=== PATIENT | male | born 1980 | race Caucasian/White ===

== ENCOUNTER 2024-08-14 13:12 | Emergency (ER) | payer OTHER, SELFPAY ==
[2024-08-14 13:22] VITALS: BP 159/96; PULSE 67; RESP 16; TEMP 36.4; O2SAT 97
--- NOTE | 2024-08-14 14:36 | ED.WOUNDLAC ---
HPI - Wound/Laceration General Chief Complaint: Wound/Laceration Stated Complaint: lac to the L thumb Time Seen by Provider: 08/14/24 14:20 Source: patient Mode of arrival: ambulatory Limitations: no limitations History of Present Illness HPI narrative: This is a 44 year old male that presents to the ER for laceration to the left 1st finger. Reports he accidentally cut himself with a blade. Reports bleeding and pain to the area. He is not up to date on tetanus. Denies decreased ROM or numbness. Related Data Allergies Allergy/AdvReac Type Severity Reaction Status Date / Time No Known Allergies Allergy Verified 08/14/24 14:47 Review of Systems Review of Systems: CONSTITUTIONAL: Denies fever SKIN: Reports laceration NEUROLOGIC: Denies numbness All systems reviewed & are unremarkable except as noted in HPI and below Exam Narrative: GENERAL: Well-appearing, well-nourished, and in no acute distress. HEAD: Normocephalic, atraumatic. EYES: EOMI. EXTREMITIES: Normal range of motion. No edema. 1.5 cm linear laceration into subcutaneous tissue to the distal phalanx left 1st finger SKIN: Warm, dry, no rash. NEURO: No focal deficits. Alert and oriented x3. PSYCH: Normal mood and affect Course Course Emergency Course: patient educated on further wound care Vital Signs Vital signs: Vital Signs Temperature 97.6 F 08/14/24 13:22 Pulse Rate 67 08/14/24 13:22 Respiratory Rate 16 08/14/24 13:22 Blood Pressure 159/96 H 08/14/24 13:22 Pulse Oximetry 97 08/14/24 13:22 Temperature 97.6 F 08/14/24 13:22 Pulse Rate 67 08/14/24 13:22 Respiratory Rate 16 08/14/24 13:22 Blood Pressure 159/96 H 08/14/24 13:22 Pulse Oximetry 97 08/14/24 13:22 Procedures Laceration Laceration 1: Date: 08/14/24 Time: 15:02 Site: hand Side (If applicable): left Size (cm): 1.5 Description: linear Depth: simple, single layer Local Anesthetic: lidocaine 1% Amount of anesthesia used (mL): 2 Pre-repair: wound explored and irrigated ====== Skin Level ====== Skin layer closed with: nylon Size (cm): 4-0 Number of sutures: 2 Technique: simple, interrupted ====== Subcutaneous Layer ====== ====== Muscle Layer ====== ====== Tendon Layer ====== MDM - Wound/Laceration MDM Narrative Medical decision making narrative: Patient presents to the emergency department after a laceration to the left 1st finger sustained just prior to arrival. Patient updated on tetanus vaccination. His wound was irrigated and closed with sutures. Educated on further wound care. He is to follow up with primary provider. He was given warnings to return to the ER Differential Diagnosis Differential diagnosis: Likely laceration, abrasion and avulsion of skin Critical Care Time Critical Care Time Critical Care Time: No Discharge Plan Discharge Clinical Impression: Laceration Patient Disposition: Home Condition: Stable Instructions: Antibiotic Form, Care For Your Stitches (ED), Laceration (ED) Additional Instructions: Return to the emergency department if you experience fever, redness or swelling of your wound, abnormal drainage from your wound, or any other symptoms that are concerning to you. Apply antibiotic ointment daily. Do not soak the wound. Clean with mild soap and water daily. Take oral antibiotic as prescribed Follow-up with your primary care doctor for suture removal in 10-14 days. Patient Language: Kittitian Prescriptions: New cephalexin 500 mg capsule 500 mg PO Q6H 5 Days Qty: 20 0RF Follow-up/Referrals: Dimitrios Almendarez MD [Physician] - PHYSICIAN,TWO NEEDLE MACHINE OPERATOR [Non-Staff] -
--- OUTSIDE RECORDS SUMMARY | 2024-08-14 14:44 | XMS_ITS | Clinical Summary ---
Author Organization [facility] [place] [address] [facility] Address [address] [place] [address] Care Team Providers Care Office Technology Instructor Name Role Phone No, Physician Primary Care Provider [phone] Allergies No known active allergies Medications No known medications Active Problems Problem Noted Date Diagnosed Date Acute pain of left knee 06/13/2022 Lumbago 09/12/2010 Social History Tobacco Use Types Packs/Day Years Used Date Smoking Tobacco: Never Tobacco Cessation:Counseling Given: Not Answered Personal Safety Answer Date Recorded Getting School Help Needed Not on file 06/21 Sex and Gender Information Value Date Recorded Sex Assigned at Not on file Legal Sex Male 9:06 PM LEGAL TECHNICIAN Gender Identity Male 06/11/2022 8:47 AM LEGAL TECHNICIAN Sexual Orientation Straight 06/11/2022 8: 47 AM LEGAL TECHNICIAN Obstetrics History Last Filed Vital Signs Vital Sign Reading Time Taken Comments Blood Pressure - - Pulse - - Temperature - - Respiratory Rate - - Oxygen Saturation - - Inhaled Oxygen Concentration - - Weight 97.5 kg (215 lb) 06/13/2022 7:39 AM LEGAL TECHNICIAN Height 185.4 cm (6' 1 ) 06/13/2022 7:39 AM LEGAL TECHNICIAN Body Mass Index 28.37 06/13/2022 7:39 AM LEGAL TECHNICIAN Plan of Treatment Health Maintenance Due Date Last Done Comments Colon Cancer Screening-Colonoscopy 1978 Depression Screening 1978 Hepatitis C Screening 1978 DTaP/Tdap/Td Vaccine (1 - Tdap) 1989 Hepatitis B Screening 01/17/1996 Regular Well Visit/Exam 18-64 01/17/1996 Influenza Vaccine (#1) 2023 HPV Vaccines Aged Out No longer eligi ble based on patient's age to complete this topic Pneumococcal vaccine <65 Aged Out No longer eligible based on patient's age to complete this topic Insurance [employer] OPEN ACCESS Care Teams Office Technology Instructor Relationship Specialty Start Date End Date No, Physician PCP - General 06/11/22
--- OUTSIDE RECORDS SUMMARY | 2024-08-14 14:44 | XMS_ITS | Referral Summary ---
Author Organization [facility] [place] [address] [facility] Address [address] [place] [address] Care Team Providers Care Purchasing And Claims Supervisor Name Role Phone No, Physician Primary Care Provider Allergies No known active allergies Medications No [...] on file Legal Sex Male 9:06 PM BUILDING CLEANER Gender Identity Male 06/11/2022 8:47 AM BUILDING CLEANER Sexual Orientation Straight 06/11/2022 8: 47 AM BUILDING CLEANER Last Filed Vital Signs Vital Sign Reading Time Taken Comments Blood Pressure - - Pulse - - Temperature - - Respiratory Rate - - Oxygen Saturation - - Inhaled Oxygen Concentration - - Weight 97.5 kg (215 lb) 06/13/2022 7:39 AM BUILDING CLEANER Height 185.4 cm (6' 1 ) 06/13/2022 7:39 AM BUILDING CLEANER Body Mass Index 28.37 06/13/2022 7:39 AM BUILDING CLEANER Plan of Treatment Not on file Insurance [employer] OPEN ACCESS Care Teams Purchasing And Claims Supervisor Relationship Specialty Start Date End Date No, Physician PCP - General 06/11/22
--- OUTSIDE RECORDS SUMMARY | 2024-08-14 14:44 | XMS_ITS | Encounter Summary ---
Author Organization [email or web address] Address [address] [place] [address] Care Team Providers Care Wind Turbine Blade Repair Technician Name Role Phone Jayla Wood MD Primary Care Provider [phone] Encounter Details Date Type Department Care Team (Late st Contact Info) Description 06/01/2008 Outpatient Historical [facility], Authorized P NO ADDRESS ON FILE Claude Apodaca MD [address] [place] [address] Social History Tobacco Use Types Packs/Day Years Used Date Smoking Tobacco: Never Assessed Sex and Gender Information Value Date Recorded Sex Assigned at Not on file Legal Sex Male 4:35 AM TRACTOR MECHANIC Gender Identity Not on file Sexual Orientation Not on file documented as of this encounter Plan of Treatment Not on file documented as of this encounter Visit Diagnoses Not on filedocumented in this encounter Care Teams Wind Turbine Blade Repair Technician Relationship Specialty [place] [address] [address] PCP - General 06/05/12 12/27/17 documented as of this encounter
--- OUTSIDE RECORDS SUMMARY | 2024-08-14 14:44 | XMS_ITS | Clinical Summary ---
Author Organization [facility] Address [address] [place] [address] Phone Care Team Providers Care Patient Registration Specialist Name Role Phone Unavailable Primary Care Provider Unavailabl e Allergies No known active allergies Medications No known medications Active Problems No known active problems Family History Relation Name Status Comments Father Alive Mother Alive Social History Tobacco Use Types Packs/Day Years Used Date Smoking Tobacco: Never Smokeless Tobacco: Never Alcohol Use Standard Drinks/Week Comments Yes 0 (1 standard drink = 0.6 oz pur e alcohol) weekend use Sex and Gender Information Value Date Recorded Sex Assigned at Not on file Legal Sex Male 4:35 AM CANT GANG SAWYER Gender Identity Not on file Sexual Orientation Not on file Last Filed Vital Signs Vital Sign Reading Time Taken Comments Blood Pressure 147/92 10/08/2019 11:58 AM CDT Pulse 76 10/08/2019 11:58 AM CDT Temperature 37.1 C (98.7 F) 10/08/2019 11:58 AM CDT Respiratory Rate 15 10/08/2019 11:58 AM CDT Oxygen Saturation 97% 10/08/2019 11:58 AM CDT Inhaled Oxygen Concentration - - Weight 95.3 kg (210 lb) 10/08/2019 11:58 AM CDT Height 185.4 cm (6' 1 ) 10/08/2019 11:58 AM CDT Body Mass Index 27.71 10/08/2019 11:58 AM CDT Plan of Treatment Health Maintenance Due Date Last Done Comments DTAP/TDAP/TD VACCINES (1 - Tdap) 1997 HEPATITIS B VACCINES (1 of 3 - 19+ 3-dose series) 1997 COLORECTAL SCREENING 2023 Colorectal Cancer Screening 2023 FIT-DNA Q 3 years 2023 FIT/FOBT Q 1 year 2023 Flex Sig/CT Colonography Q 5 years 2023 INFLUENZA VACCINE (#1) 2023 HPV VACCINES Aged Out No longer eligi ble based on patient's age to complete this topic Insurance [facility] OPEN ACCESS HMO
--- OUTSIDE RECORDS SUMMARY | 2024-08-14 14:44 | XMS_ITS | Encounter Summary ---
Author Organization [employer] Address [address] [place] [address] Care Team Providers Care Thermoforming Operator Name Role Phone Jayla Wood MD Primary Care Provider [phone] Encounter Details Date Type Department Care Team (Late st Contact Info) Description 10/08/2007 Outpatient Historical [facility], Authorized P NO ADDRESS ON FILE Sara Fair MD NO ADDRESS ON FILE Social History Tobacco Use Types Packs/Day Years Used Date Smoking Tobacco: Never Assessed Sex and Gender Information Value Date Recorded Sex Assigned at Not on file Legal Sex Male 4:35 AM PROFESSOR OF SPECIAL EDUCATION Gender Identity Not on file Sexual Orientation Not on file documented as of this encounter Plan of Treatment Not on file documented as of this encounter Visit Diagnoses Not on filedocumented in this encounter Care Teams Thermoforming Operator Relationship Specialty [place] [address] [phone] PCP - General 06/05/12 12/27/17 documented as of this encounter
--- OUTSIDE RECORDS SUMMARY | 2024-08-14 14:44 | XMS_ITS | Clinical Summary ---
Author Organization [facility] [employer] Address [address] [place] [address] Care Team Providers Care Pastry Finisher Name Role Phone Unavailable Primary Care Provider Unavailabl e Source Comments [facility] [employer],non-owned Affiliates and Associated Physician Practices is amultiple site organization consisting of ambulatory clinics and hospital sitesin [place], [place], [place] and [place]. This disclosure is being madepursuant to the Care Everywhere program and may not contain all information available regarding this patient. Last updated 17.[facility] [employer] Allergies No known active allergies Medications * Be aware that medications may not be up to date on this document. Alwaysverify current medications with the patient. No known medications Social History Tobacco Use Types Packs/Day Years Used Date Smoking Tobacco: Never Alcohol Use Standard Drinks/Week Comments Yes 0 (1 standard drink = 0.6 oz pur e alcohol) socially Sex and Gender Information Value Date Recorded Sex Assigned at Not on file Legal Sex Male 8:19 PM CDT Gender Identity Not on file Sexual Orientation Not on file Last Filed Vital Signs Vital Sign Reading Time Taken Comments Blood Pressure 136/71 09/30/2012 9:42 PM CDT Pulse 73 09/30/2012 9:42 PM CDT Temperature 37.2 C (98.9 F) 09/30/2012 9:42 PM CDT Respiratory Rate 16 09/30/2012 9:42 PM CDT Oxygen Saturation 99% 09/30/2012 9:42 PM CDT Inhaled Oxygen Concentration - - Weight 99.8 kg (220 lb) 09/30/2012 8:23 PM CDT Height 185.4 cm (6' 1 ) 09/30/2012 8:23 PM CDT Body Mass Index 29.03 09/30/2012 8:23 PM CDT Plan of Treatment Health Maintenance Due Date Last Done Comments COLOGUARD (AGES 45-75) - COL ON CA SCREENING 1978 COLON MONITORING 1978 COLONOSCOPY - COLON CA SCREENING 1978 CT COLONOGRAPHY - COLON CA SCREENING 1978 Colorectal Cancer Screening 1978 FIT - COLON CA SCREENING 1978 FLEX SIG - COLON CA SCREENING 1978 LIPID TESTING 1978 HIV SCREENING 1993 HEPATITIS C SCREENING 01/12/1996 DTAP/TDAP/TD VACCINES (1 - Tdap) 1997 HEPATITIS B VACCINE (1 of 3 - 19+ 3-dose series) 1997 COVID-19 VACCINE ( - 2023-2 5 season) 2023 DEPRESSION SCREENING 04/08/2024 INFLUENZA VACCINE (Season Ended) 2024 ZOSTER VACCINE (1 of 2) 01/17/2028 HIB VACCINE Aged Out No longer eligi ble based on patient's age to complete this topic HPV VACCINE Aged Out No longer eligi ble based on patient's age to complete this topic MENINGOCOCCAL (Group B) VACC INE SHARED DECISION-MAKING Aged Out No longer eligibl e based on patient's age to complete this topic MENINGOCOCCAL GROUPS A/C/Y/W VACCINE Aged Out No longer eligible b ased on patient's age to complete this topic PNEUMOCOCCAL VACCINE Aged Out No long er eligible based on patient's age to complete this topic Insurance [facility]
--- OUTSIDE RECORDS SUMMARY | 2024-08-14 14:44 | XMS_ITS | Continuity of Care Document ---
Author Organization [facility] Address [address] [place] [address] Phone Care Team Providers Care Under Ground Miner Name Role Phone Gucci Kaplan MD Unavailable Unavailable Allergies, Adverse Reactions, Alerts Substance Reaction Status Criticality No Known Allergies Active No Inform ation Procedures Procedure Date OFFICE/OUTPATIENT VISIT EST OFFICE/OUTPATIENT VISIT EST RADEX KNE COMPL 4/MORE VIEWS OFFICE/OUTPATIENT VISIT NEW Advance Directives Directive Yes / No Effective Date File Name No Information Encounters Encounter Description Practice Location Reason(s) For Visit Diagnoses Date Provider Providers Copied on Encounter OFFICE/OUTPAT IENT VISIT EST [facility] , [address], [place], [address], [place] [phone] [facility] Kate Patellofemoral pain syndrome of left knee 3 Eusebio Duckworth. [address], [place], [place], [id number] , [place]. tel: [phone] OFFICE/OUTPAT IENT VISIT EST [facility] , [address], [place], [address], [place] [phone] [facility] Kate Injury of meniscus of left knee, initial encounter 3 Eusebio Duckworth. [address], [place], [place], [id number] , [place]. tel: [phone] OFFICE/OUTPAT IENT VISIT NEW [facility] , [address], [place], [address], [place] tel:[phone] [facility] Kate Pain in left kneeInjury of meniscus of left knee, initial encounterBody mass index [BMI] 28.0-28.9, adult 3 Eusebio Duckworth. [address], [place], [place], [id number] , [place]. tel: [phone] Family History Family Member Type Diagnosis Age At Onset No Information Payers Payer name Insurance type Covered democrat ID Reji drake(yola [employer] E2 OT [id number] Social History Type Description Quantity Date Captured Comments Alcohol Use Details Unknown Caffeine Use Details Unknown Tobacco Use Status No Information Smoking Status No Information Sex Male Chief Complaint And Reason For Visit No Information Reason For Referral Reason For Referral No Information Plan Of Treatment Date Type Action Status Goal Lifestyle education regardin g diet completed Referral Ordered: OUL KEE COMPL 4/MORE VIEWS LT ordered History Of Present Illness Encounter Date Complaint History Of Prese nt Illness No Information Functional Status Date Functional Assessmen t No Information Instructions Date Instruction Additional Infor mation Lifestyle education regarding di et Related to Body mass index [BMI] 28.0-28.9, adult Assessments Type Assessment Date assessment Patellofemoral pain syndrome of left knee Patient Care Teams Name Effective Dates (start - stop) Status Members No Information
[2024-08-14] MEDS: TETANUS,DIPHTHERIA,AC PERTUSSIS ADULT (0.5 ML) BOOSTRIX IM (14:50)
[2024-08-14] MEDS: Please add drug allergy info to patient profile. 1 EACH XX (14:50)
[2024-08-14 15:23] VITALS: BP 136/90; PULSE 60; RESP 15; O2SAT 97
== END 2024-08-14 15:27 | disposition home or self-care (01) ==
PROVIDERS: Emergency Provider Physician Assistant
DX: S61.012A Laceration without foreign body of left thumb without damage to nail, initial encounter (principal); W26.8XXA Contact with other sharp object(s), not elsewhere classified, initial encounter; Z23 Encounter for immunization
CPT/HCPCS: 12001; 90715; 99283